=== PATIENT | male | born 1965 | race African-American/Black ===

== ENCOUNTER 2018-04-05 10:41 | Emergency (ER) | payer MEDICARE, MEDICAID ==
--- NOTE | 2018-04-05 12:44 | RAD ---
THREE VIEWS RIGHT ANKLE: HISTORY: Pain. COMPARISON: None. FINDINGS: Lateral soft tissue swelling. No acute fracture. Joint spaces are preserved. IMPRESSION: 1. No acute fracture. 2. Lateral soft tissue swelling. POS: [facility]
== END 2018-04-05 11:30 | disposition home or self-care (01) ==
LOC: SCSER 10:41
DX: S93.401A Sprain of unspecified ligament of right ankle, initial encounter (principal); F20.9 Schizophrenia, unspecified; F32.9 Major depressive disorder, single episode, unspecified; Z79.899 Other long term (current) drug therapy; X50.1XXA Overexertion from prolonged static or awkward postures, initial encounter

== ENCOUNTER 2019-04-02 12:22 | Emergency (ER) | payer MEDICARE, MEDICAID | END 2019-04-02 12:41 | disposition home or self-care (01) | LOC: SCSER 12:22 | DX: M79.10 Myalgia, unspecified site (principal); F20.9 Schizophrenia, unspecified; F32.9 Major depressive disorder, single episode, unspecified; Z79.899 Other long term (current) drug therapy | CPT/HCPCS: 99283 ==